=== PATIENT | male | born 1970 | race Caucasian/White ===

== ENCOUNTER 2016-09-02 16:03 | Emergency (ER) | payer BC ==
[2016-09-02 16:26] VITALS: BP 150/96
--- NOTE | 2016-09-02 17:03 | EDM.PDOC ---
ED HPI GENERAL MEDICAL PROBLEM - General Chief Complaint: Lower Extremity Injury/Pain Stated Complaint: right leg pain, unable to bear weight Time Seen by Provider: 09/02/16 16:20 Source of Information: Reports: Patient History Limitations: Reports: No Limitations, Altered Mental Status - History of Present Illness Onset: Gradual Onset Date: 08/28/16 Duration: Day(s): Location: Reports: Lower Extremity, Left, Lower Extremity, Right, Other (And first-degree ochoa of lower extremities secondary to sun exposure) Quality: Reports: Burning, Dull, Throbbing Severity: Moderate Improves with: Reports: Cold Therapy, Rest Worsens with: Reports: Movement Context: Reports: Activity (Mowing grass) Associated Symptoms: Reports: No Other Symptoms Treatments 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 Right Lower Leg Pain Score (Numeric/FACES): 6 - Related Data Allergies Allergy/AdvReac Type Severity Reaction Status Date / Time No Known Allergies Allergy Verified 09/02/16 16:05 Home Meds: Home Meds Acetaminophen 650 mg PO Q4H PRN 09/02/16 [History] Fexofenadine [Tracy] 180 mg PO DAILY 09/02/16 [History] Prednisone [IJD: Prednisone] 10 mg PO BID 09/02/16 [History] atorvaSTATin [Lipitor] 40 mg PO DAILY 09/02/16 [History] Review of Systems - Review of Systems Review Of Systems: See Below Constitutional: Reports: No Symptoms Eyes: Reports: No Symptoms Ears: Reports: No Symptoms Nose: Reports: No Symptoms Mouth/Throat: Reports: No Symptoms Respiratory: Reports: No Symptoms Cardiovascular: Reports: No Symptoms GI/Abdominal: Reports: No Symptoms Genitourinary: Reports: No Symptoms Musculoskeletal: Reports: No Symptoms Skin: Reports: No Symptoms, Erythema, Burn(s) (First and second-degree ochoa of lower extremities secondary to sun exposure) Neurological: Reports: No Symptoms Psychiatric: Reports: No Symptoms ED EXAM, GENERAL - Physical Exam Exam: See Below Exam Limited By: No Limitations General Appearance: Alert, WD/WN, No Apparent Distress Ears: Normal External Exam, Normal Canal, Hearing Grossly Normal, Normal TMs Ear Exam: Bilateral Ear: Auricle Normal, Canal Normal, TM normal Nose: Normal Inspection, Normal Mucosa, No Blood Throat/Mouth: Normal Inspection, Normal Lips, Normal Teeth, Normal Gums, Normal Oropharynx, Normal Voice, No Airway Compromise Head: Atraumatic, Normocephalic Neck: Normal Inspection, Supple, Non-Tender, Full Range of Motion Respiratory/Chest: No Respiratory Distress, Lungs Clear, Normal Breath Sounds, No Accessory Muscle Use, Chest Non-Tender Cardiovascular: Normal Peripheral Pulses Peripheral Pulses: 1+: Posterior Tibial (L), Posterior Tibial (R), Dorsalis Pedis (L), Dorsalis Pedis (R) GI/Abdominal: Normal Bowel Sounds, Soft, Non-Tender, No Organomegaly, No Distention, No Abnormal Bruit, No Mass (Male) Exam: No Hernia, Normal Inspection, Normal Prostate, Circumcised Rectal (Males) Exam: Deferred Back Exam: Normal Inspection, Full Range of Motion Extremities: Pedal Edema, Leg Pain, Increased Warmth, Other (First and second- degree ochoa of lower extremities) Neurological: Alert, Oriented, CN II-XII Intact, Normal Cognition, Normal Gait, Normal Reflexes, No Motor/Sensory Deficits Skin Exam: Warm, Dry, Erythema, Increased Warmth (Over warm Ochoa) Course - Vital Signs Last Recorded V/S: Last Vital Signs Temp 98.7 F 09/02/16 16:09 Pulse 92 09/02/16 16:09 Resp 20 09/02/16 16:09 BP 150/96 H 09/02/16 16:26 Pulse Ox 99 09/02/16 16:09 Departure - Departure Time of Disposition: 17:08 Disposition: Home, Self-Care 01 Condition: Good Clinical Impression: Second degree ochoa of multiple sites - Discharge Information Forms: ED Department Discharge Additional Instructions: Patient will come in for wound care tomorrow in the clinic also is to keep leg elevated Care Plan Goals: Resume all medications as ordered
== END 2016-09-02 17:23 | disposition home or self-care (01) ==
LOC: LL.ED 16:03
DX: T24.201A Burn of second degree of unspecified site of right lower limb, except ankle and foot, initial encounter (principal); T24.202A Burn of second degree of unspecified site of left lower limb, except ankle and foot, initial encounter; Z79.899 Other long term (current) drug therapy
CPT/HCPCS: 99283